=== PATIENT | female | born 1930 | race Caucasian/White ===

== ENCOUNTER 2016-08-17 13:43 | Inpatient (IN) | payer MEDICARE ==
--- NOTE | 2016-08-17 13:57 | Emergency Department Record ---
History of Present Illness - General Chief Complaint: Difficulty Breathing Stated Complaint: CASA Time Seen by Provider: 08/17/16 13:55 Source: Patient Mode of Arrival: Ambulatory Limitations: No limitations - History of Present Illness Initial Comments: The patient is here due to worsening CASA for the last 2 weeks with worsening SINGH. She denies any CP, back pain or fevers but is having and increase in cough and sputum production. The patient has a long hx of COPD and does wear home 02 2 liters at home. She states now she is unable to walk even the shortest distances due to SOB. MD Complaint: Cough, Shortness of breath Onset/Timin -: Days(s) Quality: Aching Consistency: Constant Associated Symptoms: Polydipsia, Sputum production - Related Data Home Oxygen Amount: 2 Liters Home Medications Medication Instructions Recorded Confirmed Last Taken Albuterol Sulfate [Proair Hfa] 1 puff INH ASDIR PRN #26 02/05/16 08/17/1608/17 Captopril [Capoten] 12.5 mg PO BID #180 02/05/16 08/17/16 08/17/16 Clobetasol Propionate/Emoll 30 gm TOP ASDIR #45 02/05/16 08/17/16 08/17/16 [Clobetasol Emollient 0.05% Crm] Furosemide 20 mg PO DAILY #90 02/05/16 08/17/16 08/17/16 Gabapentin 100 mg PO BID #180 02/05/16 08/17/16 08/17/16 Prednisone 2.5 mg PO DAILY #70 02/05/16 08/17/16 08/17/16 Simvastatin 40 mg PO DAILY #90 02/05/16 08/17/16 08/17/16 Tiotropium [place] [Spiriva] 1 puff INH DAILY #90 02/05/16 08/17/16 08/16/16 Allergies Allergy/AdvReac Type Severity Reaction Status Date / Time verteporfin [From Visudyne] Allergy SWELLING Verified 08/17/16 15:09 OF THE TONGUE Travel Screening - Travel/Exposure Within Last 30 Days Have you traveled within the last 30 days?: No - Travel/Exposure Within Last Year Have you traveled outside the [place] in the last year?: No - Additonal Travel Details Have you been exposed to anyone with a communicable illness?: No - Travel Symptoms Symptom Screening: None Review of Systems Constitutional: Reports: Malaise. Denies: Chills, Fever Eyes: Denies: Eye discharge ENT: Reports: Congestion Respiratory: Reports: Cough, Dyspnea. Denies: Hemoptysis Cardiovascular: Denies: Arrhythmia, Chest pain Endocrine: Reports: Fatigue Gastrointestinal: Denies: Abdominal pain Genitourinary: Denies: Dysuria Musculoskeletal: Denies: Back pain Skin: Denies: Bruising Past Medical History - SOCIAL HISTORY Smoking Status: Former smoker Alcohol Use: None Drug Use: None - RESPIRATORY Hx Respiratory Disorders: Yes Hx COPD: Yes (emphysema) - CARDIOVASCULAR Hx Cardio Disorders: No - NEURO Hx Neuro Disorders: No - GI Hx GI Disorders: No - Hx Genitourinary Disorders: Yes Hx Kidney Stones: Yes - ENDOCRINE Hx Endocrine Disorders: No - MUSCULOSKELETAL Hx Musculoskeletal Disorders: Yes 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 negative: Tonsillar erythema, Tonsillar exudate - Neck Neck exam: Normal inspection, Full ROM. negative: Tenderness - Respiratory Respiratory exam: Decreased breath sounds, Wheezes. negative: Normal lung sounds bilaterally, Rales, Respiratory distress, Rhonchi - Cardiovascular Cardiovascular Exam: Regular rate, Normal rhythm, Normal heart sounds - GI/Abdominal GI/Abdominal exam: Soft, Normal bowel sounds. negative: Tenderness - Extremities Extremities exam: Normal inspection, Full ROM, Normal capillary refill. negative: Pedal edema, Tenderness - Neurological Neurological exam: Alert, Normal gait. negative: Abnormal gait Course Vital Signs 08/17/16 13:47 Temperature 97.4 F L Pulse Rate 99 H Respiratory 24 Rate Blood Pressure 121/70 Pulse Ox 81 L - Reevaluation(s) Reevaluation #1: The patient is doing better but still having CASA and SINGH. On exam she still has poor aeration and wheezes in the lower lobes. I did discuss the results with the patient and the need for further treatments in the hospital and the patient agrees. 08/17/16 15:45 Reevaluation #2: I did discuss the case with Brittany BASURTO) and she does accept the admission for Dr. Rivera. 08/17/16 15:53 Medical Decision Making - Data Complexity MDM Data: Labs Ordered and/or Reviewed, X-Ray Ordered and/or Reviewed, EKG Ordered and/or Reviewed - Lab Data Result diagrams: 08/17/16 14:27 08/17/16 14:27 - EKG Data -: EKG Interpreted by Me EKG: No Acute Changes, Unchanged From Previous - Radiology Data Radiology results: Report reviewed (CXR: COPD with possible RLL infiltrate.) Disposition Disposition: Admit Clinical Impression: Acute Bronchitis With Chronic Obstructive Pulmonary Disease (COPD) Disposition: Still a Patient at [facility] Decision to Admit: Admit from ER Decision to Admit Date: 08/17/16 Decision to Admit Time: 15:55 Accepting Physician: Nicole Time Discussed w/Accepting Physician: 15:55 Condition: (2) Stable Forms: Patient Portal Access Time of Disposition: 15:55
[2016-08-17] MEDS ORDERED: METHYLPREDNISOLONE PF 125MG/VIAL IVP ONE (14:00)
[2016-08-17] MEDS ORDERED: IPRATROPIUM/ALBUTEROL (0.5MG/3MG) NEB INH ONE (14:00)
[2016-08-17 14:33] LABS: HEMATOCRIT 46.5 % (35.0-47.0); HEMOGLOBIN 14.2 gm/dl (11.6-16.0); MEAN CELL VOLUME 98.1 fl (81-97); MEAN CORPUSCULAR HGB CONC 30.5 g/dl (32-36); MEAN PLATELET VOLUME 8.5 fl (7.4-10.4); PLATELET COUNT 308 K/uL (130-400); RED BLOOD COUNT 4.74 M/uL (3.80-5.40); RED CELL DISTRIBUTION WIDTH 14.5 % (11.5-14.5)
[2016-08-17 14:39] LABS: PLATELET ESTIMATE NORMAL (NORMAL)
[2016-08-17 14:43] LABS: ANION GAP 7.2 (7-16); BLOOD UREA NITROGEN 12 mg/dL (7-17); CARBON DIOXIDE 38.8 mmol/L (22-30); CREATININE 0.6 mg/dL (0.52-1.04); EST GLOMERULAR FILTRATION RATE > 60 ml/min; GLUCOSE,RANDOM 170 mg/dL (70-110)
[2016-08-17 14:56] LABS: TROPONIN I < 0.012 ng/mL (0.00-0.034)
[2016-08-17] MEDS ORDERED: ALBUTEROL SULFATE (0.083%) 2.5 MG/3 ML NEB INH ONE ×2 (15:01)
[2016-08-17] MEDS ORDERED: LEVOFLOXACIN 500 MG TABLET PO ONE (15:27)
[2016-08-17] MEDS ORDERED: EMOLL TOP SCH (16:41)
[2016-08-17] MEDS ORDERED: CLOBETASOL PROPIONATE TOP SCH (16:41)
[2016-08-17] MEDS: IPRATROPIUM/ALBUTEROL (0.5MG/3MG) NEB INH SCH ×2 (18:45→22:05)
[2016-08-17] MEDS: CAPTOPRIL 12.5 MG TABLET PO SCH (22:04)
[2016-08-17] MEDS: GABAPENTIN 100 MG CAPSULE PO SCH (22:05)
[2016-08-17] MEDS: SIMVASTATIN 20 MG TABLET PO SCH (22:05)
[2016-08-17] MEDS: MELATONIN 5 MG TABLET PO SCH (22:54)
[2016-08-18] MEDS: IPRATROPIUM/ALBUTEROL (0.5MG/3MG) NEB INH SCH ×5 (06:14→21:59)
[2016-08-18] MEDS: LEVOFLOXACIN 500 MG TABLET PO SCH (06:39)
[2016-08-18 06:48] LABS: HEMATOCRIT 42.5 % (35.0-47.0); HEMOGLOBIN 13.1 gm/dl (11.6-16.0); MEAN CELL VOLUME 97.5 fl (81-97); MEAN CORPUSCULAR HGB CONC 30.8 g/dl (32-36); PLATELET COUNT 311 K/uL (130-400); RED BLOOD COUNT 4.36 M/uL (3.80-5.40); RED CELL DISTRIBUTION WIDTH 14.3 % (11.5-14.5); WHITE BLOOD COUNT W/O DIFF 10.7 K/uL (4.2-12.2)
[2016-08-18 07:06] LABS: ALB/GLOB RATIO 1.1 (1.1-1.8); ALBUMIN 3.6 gm/dL (3.5-5.0); ALKALINE PHOSPHATASE 62 U/L (38-126); ALT/SGPT 28 U/L (9-52); ANION GAP 7.8 (7-16); AST/SGOT 22 U/L (14-36); BILIRUBIN,TOTAL 0.42 mg/dL (0.2-1.3); BLOOD UREA NITROGEN 15 mg/dL (7-17); CARBON DIOXIDE 36.2 mmol/L (22-30); CREATININE 0.7 mg/dL (0.52-1.04); EST GLOMERULAR FILTRATION RATE > 60 ml/min; GLUCOSE,RANDOM 143 mg/dL (70-110); TOTAL PROTEIN 6.9 gm/dL (6.3-8.2)
[2016-08-18 07:13] LABS: PLATELET ESTIMATE NORMAL (NORMAL)
--- NOTE | 2016-08-18 07:36 | RADIOLOGY REPORT ---
EXAM: CHEST, TWO VIEWS HISTORY: COUGH. TECHNIQUE: Upright AP and lateral views of the chest were obtained. Comparison: CT of the chest without contrast dated 01/06/16. FINDINGS: The heart is not enlarged and the pulmonary vasculature is nondilated. The lungs are hyperinflated consistent with COPD. Patchy air space opacities are now demonstrated within the posterior right lung base consistent with infiltrate or atelectasis. Minor linear scarring versus atelectasis is suggested in the lateral left lung base. The lungs and pleural spaces are otherwise clear. There are degenerative changes of the visualized spine and shoulder girdles. IMPRESSION: 1. COPD. 2. PATCHY AIR SPACE OPACITIES WITHIN THE POSTERIOR RIGHT LOWER LOBE CONSISTENT WITH PNEUMONIA OR ATELECTASIS. MINOR LINEAR SCARRING VERSUS ATELECTASIS IN THE LEFT LUNG BASE. JOB NUMBER: [id number] MTDD
[2016-08-18] MEDS: CAPTOPRIL 12.5 MG TABLET PO SCH ×2 (09:16→21:58)
[2016-08-18] MEDS: FUROSEMIDE 20 MG TABLET PO SCH (09:17)
[2016-08-18] MEDS: GABAPENTIN 100 MG CAPSULE PO SCH ×2 (09:17→21:58)
[2016-08-18] MEDS: METHYLPREDNISOLONE PF 125MG/VIAL IVP SCH (09:22)
[2016-08-18] MEDS ORDERED: TIOTROPIUM BROMIDE 5 CAPSULES INH SCH (10:00)
--- NOTE | 2016-08-18 21:50 | History & Physical ---
History of Present Illness - Date of Service Date of Service for History & Physical: 08/18/16 - History of Present Illness Admitting Diagnosis: 1. COPD Exacerbation with acute Bronchitis. History of Present Illness: 85 y/o female admitted for COPD exacerbation. PMX: COPD with O2 dependence, former smoker, neuropathy 2nd smoking. Prior to admit had worsening CASA for 2 weeks with significant worsening over the last 2-3 days. Usually is short of breath walking household distances which she is able to recover after sitting down. The past 2-3 days she has not been able to recover after sitting. Denies chest pain, fever, chill. Has had a slight increase in the frequency of her cough feeling like she needs to cough up mucus from her lungs (which she has not been able to ). Does report an increase in post nasal drip. Has been experiencing 2 pillow orthopnea at night for the past 2 nights. Wears home O2 at 2L. While in the ED she was afebrile, BP 121/70, RR 24, O2 92% 2L. EKG showed NSR, old inferior infarct. CXR- COPD, RLL pneumonia vs. atelectasis. CBC with normal WBC (9.0), Hgb 14.2, plt 308. Na 140, K 4.4. Troponin <0.012. BNP 118. Reporting polydipsia in ED, no known hx DM, random glucose 170. Transferred to floor for treatment of RLL pneumonia and COPD exacerbation management 08/18/16- resting comfortably in bed, no conversational dyspnea. Reports CASA is slightly improved with ambulation but not at baseline, takes a longer period of time to recover after sitting than usual. Using 1 pillow doubled to sleep. COPD pathway initiated. Denies GI/ dysfunction or polydisia now. PCP: Dr Khoa Gonzalez Cardiolosgist: Dr Ronald Henriquez (last saw Feb 2016) Travel Screening - Travel/Exposure Within Last 30 Days Have you traveled within the last 30 days?: No - Travel/Exposure Within Last Year Have you traveled outside the [place] in the last year?: No - Additonal Travel Details Have you been exposed to anyone with a communicable illness?: No - Travel Symptoms Symptom Screening: None Review of Systems Constitutional: Reports: Malaise. Denies: Chills, Fever Eyes: Denies: Eye discharge ENT: Reports: Congestion Respiratory: Reports: Cough, Dyspnea. Denies: Hemoptysis Cardiovascular: Denies: Arrhythmia, Chest pain Endocrine: Reports: Fatigue Gastrointestinal: Denies: Abdominal pain Genitourinary: Denies: Dysuria Musculoskeletal: Denies: Back pain Skin: Denies: Bruising Past Medical History - SOCIAL HISTORY Smoking Status: Former smoker Alcohol Use: None Drug Use: None - RESPIRATORY Hx Respiratory Disorders: Yes Hx COPD: Yes (emphysema) - CARDIOVASCULAR Hx Cardio Disorders: No - NEURO Hx Neuro Disorders: Yes Hx Neuropathy: Yes (in feet) Comment:: macular degeneration - GI Hx GI Disorders: No - Hx Genitourinary Disorders: No - ENDOCRINE Hx Endocrine Disorders: No - MUSCULOSKELETAL Hx Musculoskeletal Disorders: Yes Hx Arthritis: Yes - PSYCH Hx Psych Problems: No - HEMATOLOGY/ONCOLOGY Hx Hematology/Oncology Disorders: No Family Medical History Any Significant Family History?: No H&P Meds/Allergies - Allergies Allergies: Allergies Allergy/AdvReac Type Severity Reaction Status Date / Time verteporfin [From Visudyne] Allergy SWELLING Verified 08/17/16 15:09 OF THE TONGUE - Home Medications Home Medications Medication Instructions Recorded Confirmed Last Taken Albuterol Sulfate [Proair Hfa] 1 puff INH ASDIR PRN #26 02/05/16 08/17/1608/17 Captopril [Capoten] 12.5 mg PO BID #180 02/05/16 08/17/16 08/17/16 Clobetasol Propionate/Emoll 30 gm TOP ASDIR #45 02/05/16 08/17/16 08/17/16 [Clobetasol Emollient 0.05% Crm] Furosemide 20 mg PO DAILY #90 02/05/16 08/17/16 08/17/16 Gabapentin 100 mg PO BID #180 02/05/16 08/17/16 08/17/16 Prednisone 2.5 mg PO DAILY #70 02/05/16 08/17/16 08/17/16 Simvastatin 40 mg PO QHS #90 02/05/16 08/17/16 08/17/16 Tiotropium [place] [Spiriva] 1 puff INH DAILY #90 02/05/16 08/17/16 08/16/16 - Active Medications Active Medications: Current Medications Albuterol/Ipratropium (Duoneb) 3 ml INH RESP.Q4H.CODI OZUNA Last Admin: 08/18/16 19:07 Dose: 3 ml Captopril (Capoten) 12.5 mg PO BID [facility] Last Admin: 08/18/16 09:16 Dose: 12.5 mg Furosemide (Lasix) 20 mg PO DAILY [facility] Last Admin: 08/18/16 09:17 Dose: 20 mg Gabapentin (Neurontin) 100 mg PO BID [facility] Last Admin: 08/18/16 09:17 Dose: 100 mg [facility] Last Admin: 08/18/16 06:39 Dose: 500 mg Melatonin (Melatonin) 5 mg PO QHS [facility] Last Admin: 08/17/16 22:54 Dose: 5 mg Methylprednisolone Sodium Succinate (Solu-Medrol) 60 mg IVP DAILY [facility] Last Admin: 08/18/16 09:22 Dose: 60 mg Simvastatin (Zocor) 40 mg PO QHS [facility] Last Admin: 08/17/16 22:05 Dose: 40 mg Physical Exam - Vital Signs Vital Signs: Vital Signs - Last 24 Hrs Temp Pulse Pulse Resp BP Pulse Ox 08/18/16 16:00 98.0 F 102 H 18 118/59 93 L 08/18/16 13:42 80 18 93 L 08/18/16 10:14 84 18 92 L 08/18/16 09:00 18 08/18/16 08:00 97.4 F L 83 18 112/81 94 L - General General Appearance: Alert, Oriented x3, Cooperative, No acute distress Limitations: No limitations - Head Head exam: Atraumatic, Normocephalic, Normal inspection - Eye Eye exam: Normal appearance, PERRL - ENT Throat exam: Normal inspection. negative: Tonsillar erythema, Tonsillar exudate - Neck Neck exam: Normal inspection, Full ROM. negative: Tenderness - Respiratory Respiratory exam: Decreased breath sounds, Wheezes (ins/exp throughout bilat). negative: Normal lung sounds bilaterally, Rales, Respiratory distress, Rhonchi - Cardiovascular Cardiovascular Exam: Regular rate, Normal rhythm, Normal heart sounds Peripheral Pulses: 3+: Dorsalis Pedis (R), Dorsalis Pedis (L) - GI/Abdominal GI/Abdominal exam: Soft, Normal bowel sounds. negative: Tenderness - Extremities Extremities exam: Normal inspection, Full ROM, Normal capillary refill. negative: Pedal edema, Tenderness - Neurological Neurological exam: Alert, Normal gait. negative: Abnormal gait - Psychiatric Psychiatric exam: Normal affect, Normal mood Results - Labs Result Diagrams: 08/18/16 06:00 08/18/16 06:00 Labs Last 24 Hours: Laboratory Results - last 24 hr 08/18/16 08/18/16 06:00 06:00 WBC 10.7 RBC 4.36 Hgb 13.1 Hct 42.5 MCV 97.5 H MCH 30.0 MCHC 30.8 L RDW 14.3 Plt Count 311 MPV 9.0 Neutrophils % 86.0 H Band Neutrophils % 2.0 Lymphocytes % 10.0 L Monocytes % 2.0 Eosinophils % Not Reportable Basophils % Not Reportable Platelet Estimate Normal RBC Morphology Normal Sodium 140 Potassium 4.1 Chloride 96 L Carbon Dioxide 36.2 H Anion Gap 7.8 BUN 15 Creatinine 0.7 Estimated GFR > 60 Random Glucose 143 H Calcium 9.3 Total Bilirubin 0.42 AST 22 ALT 28 Alkaline Phosphatase 62 Total Protein 6.9 Albumin 3.6 Globulin 3.3 Albumin/Globulin Ratio 1.1 VTE H&P Assessment - Risk for VTE Risk for VTE: Yes Risk Level: Moderate Risk Assessment Date: 08/18/16 Risk Assessment Time: 11:00 VTE Orders Placed or Will Be Placed: Yes Plan - Inpatient Certification Inpatient Certification: Admit to inpatient care: Based on my medical assessment, after consideration of patient's risk factors (age, co-morbidities and patient presenting symptoms and acuity), I expect that this patient will remain in the hospital greater than or equal to two midnights and that the services needed warrant inpatient care because: Patient Risk Factors: [] Estimated length of stay: [] The patient may reasonably be expected to be discharged or transferred to a hospital within 96 hours after admission to [facility]. Services needed: [] Post hospital care (if known): [] I certify that my determination is in accordance with my understanding of Medicare requirements for reasonable and necessary inpatient services. - Detailed Diagnosis and Plan (1) Right lower lobe pneumonia Current Visit: Yes Status: Acute Qualifiers: Pneumonia type: due to unspecified organism Qualified Code(s): J18.1 - Lobar pneumonia, unspecified organism Base Code: J18.1 - LOBAR PNEUMONIA, UNSPECIFIED ORGANISM Comment: 08/18/16- CXR RLL pneumonia vs. atelectasis. WBC normal. Remain more CASA with activity than baseline. 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 atalectasis - Levaquin 500mg PO QD - CBC/CMP in am - O2 at 2L as per home - VS Q 8 hrs - DuoNeb Q 4hr WA - Soumedrol 60mg IVP q day - consider pulmonology consult as outpatient (3) DVT prophylaxis Current Visit: Yes Status: Acute Base Code: [id number] - Comment: 08/18/16- nursing to encourage frequent ambulation (4) DNR (do not resuscitate) Current Visit: Yes Status: Acute Base Code: Z66 - DO NOT RESUSCITATE Comment: 08/18/16- patient requent to be DNR
[2016-08-18] MEDS: MELATONIN 5 MG TABLET PO SCH (21:58)
[2016-08-18] MEDS: SIMVASTATIN 20 MG TABLET PO SCH (21:59)
[2016-08-18] MEDS ORDERED: SODIUM CHLORIDE NASAL SPRAY PRN (22:14)
[2016-08-19] MEDS: LEVOFLOXACIN 500 MG TABLET PO SCH (06:35)
[2016-08-19] MEDS: IPRATROPIUM/ALBUTEROL (0.5MG/3MG) NEB INH SCH ×3 (06:44→14:45)
[2016-08-19 08:47] LABS: BASO % 0.1 % (0-6); EOS % 0.3 % (0-6); GRAN % 73.8 % (47-80); HEMATOCRIT 45.1 % (35.0-47.0); HEMOGLOBIN 14.1 gm/dl (11.6-16.0); MEAN CELL VOLUME 97.6 fl (81-97); MEAN CORPUSCULAR HEMOGLOBIN 30.5 pg (27-33); MEAN CORPUSCULAR HGB CONC 31.3 g/dl (32-36); MEAN PLATELET VOLUME 8.7 fl (7.4-10.4); MONO % 8.8 % (0-9); PLATELET COUNT 348 K/uL (130-400); RED BLOOD COUNT 4.62 M/uL (3.80-5.40); WHITE BLOOD COUNT W/O DIFF 14.5 K/uL (4.2-12.2)
[2016-08-19 09:12] LABS: ALB/GLOB RATIO 1.2 (1.1-1.8); ALKALINE PHOSPHATASE 58 U/L (38-126); ALT/SGPT 27 U/L (9-52); ANION GAP 10.7 (7-16); AST/SGOT 29 U/L (14-36); BILIRUBIN,TOTAL 0.51 mg/dL (0.2-1.3); BLOOD UREA NITROGEN 22 mg/dL (7-17); CARBON DIOXIDE 34.3 mmol/L (22-30); CREATININE 0.7 mg/dL (0.52-1.04); EST GLOMERULAR FILTRATION RATE > 60 ml/min; GLUCOSE,RANDOM 131 mg/dL (70-110); TOTAL PROTEIN 7.4 gm/dL (6.3-8.2)
[2016-08-19] MEDS: METHYLPREDNISOLONE PF 125MG/VIAL IVP SCH (10:41)
[2016-08-19] MEDS: CAPTOPRIL 12.5 MG TABLET PO SCH (10:41)
[2016-08-19] MEDS: FUROSEMIDE 20 MG TABLET PO SCH (10:41)
[2016-08-19] MEDS: GABAPENTIN 100 MG CAPSULE PO SCH (10:41)
--- NOTE | 2016-08-19 11:15 | Discharge Summary ---
Providers Discharge Summary Date: 08/19/16 Date of admission: 08/17/16 16:29 Expected Date of Discharge: 08/19/16 Attending physician: MAXIMO TAYLOR Primary care physician: NILE CLAROS D.O. Physical Exam - Vital Signs Vital Signs: Vital Signs - Last 24 Hrs Temp Pulse Pulse Resp BP BP Pulse Ox 08/19/16 10:20 75 16 90 L 08/19/16 09:00 84 16 08/19/16 08:00 98.0 F 84 14 125/58 92 L 08/18/16 21:00 98.1 F 86 20 109/66 93 L 08/18/16 16:00 98.0 F 102 H 18 118/59 93 L 08/18/16 13:42 80 18 93 L - General General Appearance: Alert, Oriented x3, Cooperative, No acute distress Limitations: No limitations - Head Head exam: Atraumatic, Normocephalic, Normal inspection - Eye Eye exam: Normal appearance, PERRL - ENT Throat exam: Normal inspection. negative: Tonsillar erythema, Tonsillar exudate - Neck Neck exam: Normal inspection, Full ROM. negative: Tenderness - Respiratory Respiratory exam: Decreased breath sounds. negative: Normal lung sounds bilaterally, Rales, Respiratory distress, Rhonchi - Cardiovascular Cardiovascular Exam: Regular rate, Normal rhythm, Normal heart sounds Peripheral Pulses: 3+: Dorsalis Pedis (R), Dorsalis Pedis (L) - GI/Abdominal GI/Abdominal exam: Soft, Normal bowel sounds. negative: Tenderness - Extremities Extremities exam: Normal inspection, Full ROM, Normal capillary refill. negative: Pedal edema, Tenderness - Neurological Neurological exam: Alert, Normal gait. negative: Abnormal gait - Psychiatric Psychiatric exam: Normal affect, Normal mood Hospitalization - Hospitalization Admission Diagnosis: 1. COPD Exacerbation with acute Bronchitis. - Problem List/Discharge Diagnosis (1) Right lower lobe pneumonia Current Visit: Yes Status: Acute Discharge Diagnosis: Pneumonia type: due to unspecified organism Qualified Code(s): J18.1 - Lobar pneumonia, unspecified organism Base Code: J18.1 - LOBAR PNEUMONIA, UNSPECIFIED ORGANISM Comment: 08/19/16- CXR RLL pneumonia vs. atelectasis. WBC normal. Remain more CASA with activity than baseline. Has never seen a feeder catcher tobacco - Levaquin 500mg PO QD, will continue at home for 5 more days - WBC with slight increase, has remained afebrile, likely steroid-induced - O2 at 2L as per home - DuoNeb Q 6 hours at home, Rx given for nebulizer machine. She is unable to afford Spiriva - Prednisone 50mg PO QD x 5 days - telemetry with arrythmia alarm, appearts to be artifiact, not regular pattern , asymptomatic - follow up cardiology as outpatient - consider pulmonology consult as outpatient (2) COPD (chronic obstructive pulmonary disease) with acute bronchitis Current Visit: Yes Status: Acute Base Code: J44.0 - CHRONIC OBSTRUCTIVE PULMON DISEASE W ACUTE LOWER RESP INFCT Comment: 08/19/16- CXR RLL pneumonia vs. atalectasis - Levaquin 500mg PO QD, will continue at home for 5 more days - WBC with slight increase, has remained afebrile, likely steroid-induced - O2 at 2L as per home - DuoNeb Q 6 hours at home, Rx given for nebulizer machine. She is unable to afford Spiriva - Prednisone 50mg PO QD x 5 days - telemetry with arrythmia alarm, appearts to be artifiact, not regular pattern , asymptomatic - consider pulmonology consult as outpatient (3) DVT prophylaxis Current Visit: Yes Status: Acute Base Code: [id number] - Comment: 08/19/16- nursing to encourage frequent ambulation (4) DNR (do not resuscitate) Current Visit: Yes Status: Acute Base Code: Z66 - DO NOT RESUSCITATE Comment: 08/19/16- patient requent to be DNR - Hospitalization Course Disposition: Home, Self-Care Hospital Course: 85 y/o female admitted for COPD exacerbation. PMX: COPD with O2 dependence, former smoker, neuropathy 2nd smoking. Prior to admit had worsening CASA for 2 weeks with significant worsening over the last 2-3 days. Usually is short of breath walking household distances which she is able to recover after sitting down. The past 2-3 days she has not been able to recover after sitting. Denies chest pain, fever, chill. Has had a slight increase in the frequency of her cough feeling like she needs to cough up mucus from her lungs (which she has not been able to ). Does report an increase in post nasal drip. Has been experiencing 2 pillow orthopnea at night for the past 2 nights. Wears home O2 at 2L. While in the ED she was afebrile, BP 121/70, RR 24, O2 92% 2L. EKG showed NSR, old inferior infarct. CXR- COPD, RLL pneumonia vs. atelectasis. CBC with normal WBC (9.0), Hgb 14.2, plt 308. Na 140, K 4.4. Troponin <0.012. BNP 118. Reporting polydipsia in ED, no known hx DM, random glucose 170. Transferred to floor for treatment of RLL pneumonia and COPD exacerbation management 08/18/16- resting comfortably in bed, no conversational dyspnea. Reports CASA is slightly improved with ambulation but not at baseline, takes a longer period of time to recover after sitting than usual. Using 1 pillow doubled to sleep. COPD pathway initiated. Denies GI/ dysfunction or polydisia now. PCP: Dr Nile Claros Cardiolosgist: Dr Ronald Henriquez (last saw Feb 2016) Abnormal Labs: Abnormal Lab Results 08/18/16 08/18/16 08/19/16 Range/Units 06:00 06:00 08:30 WBC 14.5 H (4.2-12.2) K/uL MCV 97.5 H 97.6 H (81-97) fl MCHC 30.8 L 31.3 L (32-36) g/dl RDW 15.0 H (11.5-14.5) % Neutrophils % 86.0 H (47-80) % Lymphocytes % 10.0 L (16-45) % Chloride 96 L (98-107) mmol/L Carbon Dioxide 36.2 H (22-30) mmol/L BUN (7-17) mg/dL Random Glucose 143 H (70-110) mg/dL 08/19/16 Range/Units 08:30 WBC (4.2-12.2) K/uL MCV (81-97) fl MCHC (32-36) g/dl RDW (11.5-14.5) % Neutrophils % (47-80) % Lymphocytes % (16-45) % Chloride 97 L (98-107) mmol/L Carbon Dioxide 34.3 H (22-30) mmol/L BUN 22 H (7-17) mg/dL Random Glucose 131 H (70-110) mg/dL Condition at Discharge: (2) Stable Discharge Medications - Discharge Medications Home Medications: Ambulatory Orders Albuterol Sulfate [Proair Hfa] 1 puff INH ASDIR PRN #26 02/05/16 [Last Taken ] Captopril [Capoten] 12.5 mg PO BID #180 02/05/16 [Last Taken 08/17/16] Clobetasol Propionate/Emoll [Clobetasol Emollient 0.05% Crm] 30 gm TOP ASDIR # 45 02/05/16 [Last Taken 08/17/16] Furosemide 20 mg PO DAILY #90 02/05/16 [Last Taken 08/17/16] Gabapentin 100 mg PO BID #180 02/05/16 [Last Taken 08/17/16] Prednisone 2.5 mg PO DAILY #70 02/05/16 [Last Taken 08/17/16] Simvastatin 40 mg PO QHS #90 02/05/16 [Last Taken 08/17/16] Tiotropium [place] [Spiriva] 1 puff INH DAILY #90 02/05/16 [Last Taken 08/16/16 ] Discharge Plan - Discharge Instructions Activity at Discharge: Increase Activity as Tolerated
== END 2016-08-19 17:25 | disposition home or self-care (01) | DRG 194 ==
LOC: ER 13:43 → MEDSURG 16:29
PROVIDERS: ADMIT Family Medicine; ATTEND Family Medicine
DX: J18.1 Lobar pneumonia, unspecified organism (principal); J44.1 Chronic obstructive pulmonary disease with (acute) exacerbation; J20.9 Acute bronchitis, unspecified; G62.9 Polyneuropathy, unspecified
CPT/HCPCS: 71020; 80048; 80053; 83880; 84484; 85025; 85027; 93005; 93010; 93041; 94640; 94760; 94761; 96374; 99223; 99239; 99285; J2930; J7613